=== PATIENT | female | born 1980 | race Caucasian/White ===

== ENCOUNTER 2017-04-05 21:51 | Emergency (ER) | payer OTHER ==
[~2017-04-05] VITALS: Ht 165.1 cm; Wt 68.0 kg
[~2017-04-05 21:51] MED LIST: CELEXA40 MG PO; CIPROFLOXACIN500 M1 PO; CLONAZEPAM 0.50.5 M1 PO; HYDROCODON-ACE1 EAC7 PO; NOHOMEMEDICATIONS; VICOPROFEN 2001 EACH PO; XANAX XR0.5 MG PO
[2017-04-05 22:42] LABS: ABSOLUTE EOSINOPHILS 0.1 thou/uL (0.0-0.7); ABSOLUTE LYMPHOCYTES 1.1 thou/uL (0.8-5.3); ABSOLUTE MONOCYTES 0.2 thou/uL (0.0-1.2); BASOPHILS 0.4 %; EOSINOPHILS 1.2 %; HEMATOCRIT 37.7 % (37.0-47.0); HEMOGLOBIN 12.5 gm/dL (12.0-15.0); LYMPHOCYTES 14.5 %; MCH 26.8 pg (26.0-34.0); MCHC 33.2 g/dL (28.0-37.0); MCV 80.8 fL (80.0-100.0); MONOCYTES 3.1 %; MPV 7.4 fl. (7.2-11.1); NUCLEATED RBCS 0 /100WBC; PLATELET COUNT* 183 thou/uL (150-400); POLYS 80.8 %; RBC 4.66 mil/uL (4.20-5.00); RDW-CV 16.7 % (10.5-14.5); WBC 7.4 thou/uL (4.0-11.0)
[2017-04-05 22:49] LABS: CALCIUM 9.1 mg/dL (8.5-10.1); CREATININE 0.8 mg/dL (0.6-1.3); POTASSIUM 3.8 mmol/L (3.5-5.1)
[2017-04-05 22:59] LABS: ALBUMIN 3.3 g/dL (3.4-5.0); TOTAL BILIRUBIN 0.3 mg/dL (<0.1-1.0); TOTAL PROTEIN 6.9 g/dL (6.4-8.2)
[2017-04-06] MEDS ORDERED: BACTRIM DS TAB1 EACH PO (00:16)
[2017-04-06] MEDS ORDERED: KEFLEX500 M1 PO (00:16)
[2017-04-06 00:29] VITALS: BP 121/64
== END 2017-04-06 00:30 | disposition home or self-care (01) ==
LOC: M.ERS 21:51
PROVIDERS: Physician Assistant
DX: L03.311 Cellulitis of abdominal wall (principal); L03.115 Cellulitis of right lower limb; F41.9 Anxiety disorder, unspecified; F17.210 Nicotine dependence, cigarettes, uncomplicated; Z98.890 Other specified postprocedural states